=== PATIENT | male | born 1960 | race Caucasian/White ===

== ENCOUNTER 2020-08-23 14:32 | Emergency (ER) | payer OTHER, SELFPAY ==
[2020-08-23 14:40] VITALS: BP 131/77; PULSE 74; RESP 15; TEMP 36.8; O2SAT 98
--- NOTE | 2020-08-23 14:52 | ED.ALLEREA ---
HPI - Allergic Reaction General Chief complaint: Allergic Reaction Stated complaint: lip swelling - takes lisinopril Time Seen by Provider: 08/23/20 14:52 Source: patient Mode of arrival: ambulatory Limitations: no limitations History of Present Illness HPI narrative: Patient is a 60-year-old male who presented for evaluation of intermittent left-sided lip swelling and facial swelling. Patient reports this has been very transient in nature, seems to come and go and currently denies any swelling. He denies any tongue swelling or difficulty breathing. No difficulty swallowing. Patient called his primary care provider who discontinued his lisinopril and started him on amlodipine. He has not had any lisinopril today. He denies any chest pain, hives, history of allergic reactions. No new soaps, lotions or detergents. No rash. No shortness of breath. No diarrhea. Patient states he wanted to be seen emergency department to get checked out. He denies any pain. Related Data Home Medications Medication Instructions Recorded Confirmed amlodipine 08/23/20 08/23/20 simvastatin mg 08/23/20 Allergies Allergy/AdvReac Type Severity Reaction Status Date / Time No Known Allergies Allergy Verified 12/14/14 05:49 Review of Systems Review of Systems: Narrative: CONSTITUTIONAL: Denies fever CARDIOVASCULAR: Denies chest pain RESPIRATORY: Denies cough or dyspnea. GASTROINTESTINAL: Denies abdominal pain SKIN: Denies rash MUSCULOSKELETAL: Denies back pain NEUROLOGIC: Denies headache [facility] Past Medical History Medical History (Updated 08/23/20 @ 15:24 by Scarlett Parham MD) Atrial flutter Hypertension Social History Social History (Updated 08/23/20 @ 15:24 by Scarlett Parham MD) Smoking status: Current some day smoker Tobacco type: cigarettes Alcohol intake: never Substance use: never Gender identity (if verbalized by the patient): Male Exam Narrative: Exam Narrative: GENERAL: Awake, alert, conversant HEAD: Normocephalic, atraumatic. EYES: PERRLA and EOMI. ENT: Nares clear, no rhinorrhea or epistaxis. Mucous membranes moist. No trismus. Uvula is midline. No lip edema or tongue edema. NECK: Supple. CHEST: No respiratory distress, breathing even and non labored HEART: Regular rate, sinus rhythm ABDOMEN:Non distended, non tender EXTREMITIES: Normal range of motion. No edema. SKIN: Warm, dry, no rash. NEURO:No focal deficits. Alert and oriented x3. EOMs intact without nystagmus. No facial droop/asymmetry noted bilaterally. Grimace intact. Intact sensation in face. Hearing intact bilaterally. Shoulder shrug intact. Strength 5/5 bilateral upper extremities. Strength 5/5 bilateral lower extremities. Course Vital Signs Vital signs: Vital Signs Temperature 36.8 C 08/23/20 14:40 Pulse Rate 74 08/23/20 14:40 Respiratory Rate 15 08/23/20 14:40 Blood Pressure 131/77 08/23/20 14:40 Pulse Oximetry 98 08/23/20 14:40 Temperature 36.8 C 08/23/20 14:40 Pulse Rate 74 08/23/20 14:40 Respiratory Rate 15 08/23/20 14:40 Blood Pressure 131/77 08/23/20 14:40 Pulse Oximetry 98 08/23/20 14:40 MDM - Allergic Reaction MDM Narrative Medical decision making narrative: Patient is a 60-year-old male who presented for evaluation of intermittent facial swelling. At the time of assessment there is no swelling appreciated on exam. Patient has no respiratory symptoms or signs of severe anaphylaxis. There is no sign of angioedema of the face, mouth. After speaking with the patient's primary care provider, I did confirm his lisinopril had been discontinued. Patient's blood pressure is appropriate here. No neurological deficits to be suggestive of a different diagnosis. Patient was given Pepcid, Decadron in the ER and was discharged home with PCP follow-up. He was advised to return should his symptoms change or recur. Differential Diagnosis Differential diagnosis: Likely anaphylaxis, allergi
[2020-08-23] MEDS: FAMOTIDINE 20 MG TABLET PO (15:37)
== END 2020-08-23 15:39 | disposition home or self-care (01) ==
PROVIDERS: Emergency Provider Emergency Medicine; PCP Physician Assistant
DX: R22.0 Localized swelling, mass and lump, head (principal); I10 Essential (primary) hypertension; I48.92 Unspecified atrial flutter
CPT/HCPCS: 99283; A9270; J1100

== ENCOUNTER 2021-03-15 14:22 | Emergency (ER) | payer OTHER, SELFPAY ==
[2021-03-15 14:32] VITALS: BP 133/83; PULSE 71; RESP 16; TEMP 36.8; O2SAT 99
--- NOTE | 2021-03-15 14:48 | ED.GENADULT ---
HPI - General Adult General Chief complaint: Allergic Reaction Stated complaint: INSECT BITE Source: patient Mode of arrival: ambulatory Limitations: no limitations History of Present Illness HPI narrative: Patient is a 60-year-old male who presents to the [facility] via POV for evaluation of allergic reaction secondary to hornet sting that occurred approximately 1-1/2 hours ago while working. Patient reports he was working outside when a hornet stung him in the left eyebrow and left upper lip. 50 mg of Benadryl provided no relief. Ice provided some relief. Nothing worsens symptoms. Related Data Home Medications Medication Instructions Recorded Confirmed amlodipine 08/23/20 08/23/20 simvastatin mg 08/23/20 Allergies Allergy/AdvReac Type Severity Reaction Status Date / Time No Known Allergies Allergy Verified 03/15/21 14:28 Review of Systems Review of Systems: Pertinent negatives fever, chills, sweats, change in appetite, malaise, poor p.o. intake, recent weight loss, change in appetite, myalgias, lymphadenopathy, LOC, dizziness, burning sensation, petechiae, blistering, erythema, pruritus, streaking, warmth, lesions, easy bruising, tongue or throat swelling, abdominal pain, nausea, vomiting, numbness, tingling, loss of sensation, cough, wheezing, chest pain, and heart palpitations/murmurs. [facility] Past Medical History Medical History (Updated 03/15/21 @ 14:58 by NANCY Schofield, ) Atrial flutter Hypertension Social History Social History Smoking status: Current some day smoker Tobacco type: cigarettes Alcohol intake: never Substance use: never Gender identity (if verbalized by the patient): Male Comments I have reviewed and agree with the patient's past medical, surgical, social, and family hx as documented by the RN. There is no relevant family history pertinent to the presenting complaint. Exam Narrative: GENERAL: Well-appearing, well-nourished, and in no acute distress. HEAD: Normocephalic, atraumatic. Moderate left-sided facial swelling and erythema appreciated. EYES: PERRLA and EOMI. left upper and lower eyelid with moderate swelling erythema. No evidence of e drainage. ENT: Nares clear, no rhinorrhea or epistaxis.Mucous membranes moist and pink. Uvula is midline without erythema and swelling. No evidence of obstruction, petechial rash, erythema, swelling, tenting, or drooling. Breath odor and voice normal. NECK: Supple. No Lymphadenopathy or nuchal rigidity appreciated. CHEST: Bilateral lung rios are clear to auscultation. No respiratory distress. No evidence of cough or pleuritic cp upon examination. HEART: Regular rate and rhythm. No murmur, gallop, or rub heard. EXTREMITIES: Normal range of motion. No edema. SKIN: Warm, dry. No evidence of cellulitis, abscess, streaking, induration, abrasions/lacerations, petechiae, hematoma, contusion, drainage, or bleeding. NEURO: No focal deficits. Alert and oriented x3. SPECIAL OBSERVATIONS: Smiling. Laughing. Course Vital Signs Vital signs: Vital Signs Temperature 98.2 F 03/15/21 14:32 Pulse Rate 71 03/15/21 14:32 Respiratory Rate 16 03/15/21 14:32 Blood Pressure 133/83 03/15/21 14:32 Pulse Oximetry 99 03/15/21 14:32 Temperature 98.2 F 03/15/21 14:32 Pulse Rate 71 03/15/21 14:32 Respiratory Rate 16 03/15/21 14:32 Blood Pressure 133/83 03/15/21 14:32 Pulse Oximetry 99 03/15/21 14:32 Due to an elevated blood pressure, I had a detailed discussion with the patient and/or guardian regarding the need for follow-up with their primary care provider within the next 3-4 days. Patient verbalized understanding and agreed. Medical Decision Making Differential Diagnosis Differential Diagnosis: Contact/allergic dermatitis, atopic dermatitis, psoriasis, cellulitis, tinea infection, parasite infection, shingles Medical Records Medical records rev
[2021-03-15] MEDS: methylPREDNISolone SOD SUCC 125 MG VIAL IM (14:51)
== END 2021-03-15 15:20 | disposition home or self-care (01) ==
PROVIDERS: Emergency Provider Nurse Practitioner Family
DX: T63.451A Toxic effect of venom of hornets, accidental (unintentional), initial encounter (principal); F17.210 Nicotine dependence, cigarettes, uncomplicated; I10 Essential (primary) hypertension; I48.92 Unspecified atrial flutter
CPT/HCPCS: 96372; 99213; G0463; J2930

== ENCOUNTER 2021-09-09 14:24 | Emergency (ER) | payer OTHER, SELFPAY ==
[2021-09-09] VITALS (18 sets, daily range): BP systolic 118–156; BP diastolic 73–96; PULSE 63–80; RESP 12–25; TEMP 37.2; O2SAT 95–100
--- NOTE | ~2021-09-09 | XR_ITS ---
EXAMINATION: XR chest 2V Exam Date/Time: 09/09/2021 17:05 CDT CLINICAL HISTORY: cough and chills x3days,subjective fever,smoker Comparison: 09/17/2013. RESULT: Lines, tubes, and devices: None. Lungs and pleura: Clear. Cardiomediastinal silhouette: Stable cardiomediastinal silhouette. Other: No acute osseous or upper abdominal finding. IMPRESSION: No acute cardiopulmonary process Reviewed, dictated and finalized at location K.
--- NOTE | 2021-09-09 15:26 | ED.GENADULT ---
HPI - General Adult General Chief complaint: Weakness <ALDA Mrash Last Filed: 09/09/21 19:34> Stated complaint: chill/weakness <ALDA Marsh Last Filed: 09/09/21 19:34> Time Seen by Provider: 09/09/21 15:14 <ALDA Marsh Last Filed: 09/09/21 19:34> Source: patient <ALDA Marsh Last Filed: 09/09/21 19:34> Mode of arrival: ambulatory <ALDA Marsh Last Filed: 09/09/21 19:34> Limitations: no limitations <ALDA Marsh Last Filed: 09/09/21 19:34> History of Present Illness HPI narrative: Patient is a 61-year-old male who presents the ED with report of flu-like symptoms. Patient reports having subjective fever, chills, and intermittent sweats since Saturday. Did not document a thermometer fever. He has been taking DayQuil and NyQuil and aspirin at home. He does not take aspirin daily. He has not taken any Tylenol or ibuprofen. He also reports having myalgias, congestion, and an intermittent productive cough with clear phlegm. He states overall he just feels run down. No chest pain, shortness of breath. No BLE pain or edema. Patient is not flu or COVID vaccinated. No sore throat, nausea, vomiting, abdominal pain, headache. <ALDA Marsh Last Filed: 09/09/21 19:34> Related Data Home medications: Home Medications Medication Instructions Recorded Confirmed amlodipine 08/23/20 08/23/20 simvastatin mg 08/23/20 <ALDA Marsh Last Filed: 09/09/21 19:34> Allergies/adverse reactions: Allergies Allergy/AdvReac Type Severity Reaction Status Date / Time No Known Allergies Allergy Verified 09/09/21 14:57 <ALDA Marsh Last Filed: 09/09/21 19:34> Review of Systems Review of Systems: CONSTITUTIONAL: Reports fever, chills, and sweats. ENT: Reports congestion. Denies sore throat. CARDIOVASCULAR: Denies chest pain, palpitations, or BLE edema. RESPIRATORY: Reports cough. Denies dyspnea. GASTROINTESTINAL: Denies abdominal pain, nausea, vomiting, or diarrhea. MUSCULOSKELETAL: Reports myalgias. NEUROLOGIC: Denies headache. <Sun Peters PA-C - Last Filed: 09/09/21 19:34> All systems reviewed & are unremarkable except as noted in HPI and below <Sun Peters PA-C - Last Filed: 09/09/21 19:34> [facility] Past Medical History Medical History: Medical History (Updated 09/10/21 @ 00:00 by [facility] [place]) Atrial flutter Hyperlipidemia Hypertension <Sun Peters PA-C - Last Filed: 09/09/21 19:34> Surgical History Surgical History: Surgical History (Updated 09/09/21 @ 17:07 by Sun Peters PA-C) No pertinent past surgical history <Sun Peters PA-C - Last Filed: 09/09/21 19:34> Social History Social History: Social History Smoking status: Current some day smoker Tobacco type: cigarettes Alcohol intake: never Substance use: never Gender identity (if verbalized by the patient): Male <Sun Peters PA-C - Last Filed: 09/09/21 19:34> Exam Narrative: GENERAL: Well appearing, well-nourished, non-toxic, in no acute distress. HEAD: Normocephalic, atraumatic. THROAT: Pharynx clear, no exudate. MMs moist. NOSE: Normal, no drainage. NECK: Supple. No adenopathy, no masses. RESPIRATORY: Airway patent, respirations nonlabored. Clear to auscultation bilaterally, no rales, rhonchi, wheezing. Occasional cough on exam. CARDIOVASCULAR: Regular rate and rhythm without murmurs, rubs, or gallops. Radial pulses 2+ and equal bilaterally. ABDOMINAL: Soft, nontender, nondistended, no hepatosplenomegaly. Normoactive BS. MUSCULOSKELETAL: Moves all extremities. Strength/ROM intact without gross deformities or TTP. No edema. SKIN: Warm, dry, normal color. No rashes. NEURO: A&O X3. Speech clear. Cranial nerves II-XII grossly intact. Steady gait. No ataxic movements. PSYCHIATRIC: Appropriate mood and affect. Desire
--- NOTE | 2021-09-09 15:35 | ECG_ITS ---
Measurements Intervals [place] Rate: 63 P: 36 [place]: 141 QRS: 16 QRSD: 94 T: 10 QT: 394 QTc: 405 Interpretive Statements SINUS RHYTHM NORMAL ECG NO PREVIOUS ECG AVAILABLE FOR COMPARISON Electronically Signed On 09-10-2021 7:59:59 CDT by Francisco Javier Puga M.D.
[2021-09-09 15:52] LABS: Basophils Percent Auto 0.2 % (0.2-1.2); Eosinophils Percent Auto 0.4 % (0-4.4); Hematocrit 42.4 % (42.0-52.0); Immature Granulocyte Absolute 0.03 K/mm3 (0.00-0.031); Immature Granulocyte Percent A 0.6 % (0-0.5); Lymphocytes Absolute Auto 1.16 K/mm3 (0.9-3.2); Lymphocytes Percent Auto 24.9 % (18.3-44.2); Mean Corpuscular Hemoglobin 29.2 pg (26-34); Mean Corpuscular Volume 88.5 fl (80-100); Mean Platelet Volume 10.9 fl (7.4-10.4); Monocytes Absolute Auto 0.8 K/mm3 (0.1-0.6); Monocytes Percent Auto 16.6 % (2.6-8.5); Neutrophils Absolute Auto 2.7 K/mm3 (1.3-6.7); Neutrophils Percent Auto 57.3 % (45.5-73.1); Platelet Count Result 178 k/mm3 (150-375); Red Blood Count 4.79 M/mm3 (4.6-6.20); Red Cell Distribution Width 12.8 % (11.5-14.5); White Blood Count 4.7 K/mm3 (4.5-10.0)
[2021-09-09] MEDS: SODIUM CHLORIDE 0.9% IV 1,000 ML 999 ML IV CONT (15:52)
[2021-09-09 15:57] LABS: Alanine Aminotransferase 25 U/L (4-50); Albumin Level 4.2 g/dL (3.5-5.1); Alkaline Phosphatase 55 U/L (38-126); Anion Gap 6 mmol/L (8-16); Aspartate Amino Transferase 37 U/L (17-59); Bilirubin,Total 0.2 mg/dL (0.2-1.3); Blood Urea Nitrogen 18 mg/dL (9-20); Calcium 8.4 mg/dL (8.4-10.2); Carbon Dioxide 25 mmol/L (22-30); Chloride 108 mmol/L (98-107); Estimated CRCL calculation 57 ml/min; Estimated Glomerular Filt Rate > 60; Glucose 93 mg/dL (65-110); Potassium 3.7 mmol/L (3.4-5.0); Sodium 139 mmol/L (137-145)
[2021-09-09 16:08] LABS: Troponin I < 0.012 ng/mL (0.000-0.034)
[2021-09-09 16:37] LABS: Influenza A QL RT-PCR Negative (Negative); Influenza B QL RT-PCR Negative (Negative); SARS-CoV-2 RNA PCR Negative
== END 2021-09-09 17:43 | disposition home or self-care (01) ==
PROVIDERS: Physician Assistant; Emergency Provider Emergency Medicine
DX: J06.9 Acute upper respiratory infection, unspecified (principal); Z20.822 Contact with and (suspected) exposure to COVID-19; I48.92 Unspecified atrial flutter; E78.5 Hyperlipidemia, unspecified; I10 Essential (primary) hypertension; Z28.310 Unvaccinated for COVID-19
CPT/HCPCS: 36415; 71046; 80053; 84484; 85025; 87502; 93005; 96365; 99284; C9803; J0131; J7030; U0003; U0005

== ENCOUNTER 2022-10-12 02:20 | Day surgery (SDC) | payer OTHER, SELFPAY ==
[2022-09-27 15:19] VITALS: BMI 28.5
[2022-10-12 10:53] VITALS: BP 132/76; PULSE 60; RESP 16; TEMP 36.2; O2SAT 100
[2022-10-12] MEDS: LACTATED RINGERS 1,000 ML 150 ML IV CONT (11:04)
--- NOTE | 2022-10-12 11:04 | PM.HPGS ---
History of Present Illness History of Present Illness Consent: Risks, benefits, and alternatives have been discussed and questions answered. Patient agrees to proceed with procedure. Chief complaint: neoplasm screening Narrative: Ron Christie is a 62 year old male Presents for screening colonoscopy. Patient's current weight appetite and bowel movements are normal. Patient denies abdominal pain. He has had no bleeding. Family history noncontributory. Patient presents today for screening colonoscopy Review of Systems Review of Systems: review of systems noncontributory. [facility], [facility] Past Medical History Medical History (Updated 10/12/22 @ 11:05 by Rahul Riddle MD) Atrial flutter Hyperlipidemia Hypertension Surgical History Surgical History (Updated 09/09/21 @ 17:07 by Sun Bustillos PA-C) No pertinent past surgical history Social History Social History Smoking packs per day: 0.5 Smoking cigarettes per day: 10.0 Years smoked: 50 Smoking pack-years: 25.00 Smoking status: Current every day smoker Tobacco type: cigarettes Alcohol intake: current Alcohol use details: rarely Substance use: never Substance use type: does not use Living arrangements: with family Gender identity (if verbalized by the patient): Male Spiritual care concerns: No Meds Home Medications and Allergies Home Medications Medication Instructions Recorded Confirmed Type No Home Medications 10/12/22 10/12/22 History Allergies Allergy/AdvReac Type Severity Reaction Status Date / Time No Known Allergies Allergy Verified 10/12/22 10:52 Vital Signs Vital Signs - 24 hr 10/12/22 10:53 Temperature 97.1 F L Pulse Rate 60 Respiratory Rate 16 Blood Pressure 132/76 Pulse Oximetry 100 Oxygen Delivery Room Air Exam Narrative: Physical exam reveals patient to be alert. Vital signs stable. HEENT exam is unremarkable. Patient is anicteric. Lungs are clear to auscultation and percussion. Heart is without murmur or extra sounds. Abdomen bowel sounds are present soft nontender with no organomegaly. Digital external rectal exam normal. Assessment and Plan Assessment and plan (1) Encounter for screening colonoscopy: Code(s): Z12.11 - Encounter for screening for malignant neoplasm of colon Status: Acute Assessment and Plan: Patient presents today for screening colonoscopy. He appears to be at average risk for colon polyps. Further recommendations will be given after endoscopy.
--- NOTE | 2022-10-12 11:32 | P.PNAN_ITS ---
Anes - Initial Pre Proc Eval Procedure: Operation Date: 10/12/22 11:30 Proposed Procedures p Screening Colonoscopy - Rahul Riddle MD Date/Time: 10/12/22 11:32 Surgeon: aRhul Riddle MD Pre Op Diagnosis: neoplasm screening Patient Data Age: 62 Gender: M Height: 1.73 m Weight: 84.6 kg Last Vital Signs Temp 97.1 F L 10/12/22 10:53 Pulse 60 10/12/22 10:53 Resp 16 10/12/22 10:53 BP 132/76 10/12/22 10:53 Pulse Ox 100 10/12/22 10:53 O2 Del Method Room Air 10/12/22 10:53 Allergies Allergy/AdvReac Type Severity Reaction Status Date / Time No Known Allergies Allergy Verified 10/12/22 10:52 Home Medications Medication Instructions Recorded Confirmed Type No Home Medications 10/12/22 10/12/22 History Patient hx anesthesia problems: none Family hx anesthesia problems: none Results Review: All pre-operative results and documents have been reviewed as part of the pre- operative evaluation. [facility] Past Medical History Medical History (Updated 10/12/22 @ 11:05 by Rahul Riddle MD) Atrial flutter Hyperlipidemia Hypertension Surgical History Surgical History (Updated 09/09/21 @ 17:07 by Sun Bustillos PA-C) No pertinent past surgical history Social History Social History Smoking packs per day: 0.5 Smoking cigarettes per day: 10.0 Years smoked: 50 Smoking pack-years: 25.00 Smoking status: Current every day smoker Tobacco type: cigarettes Alcohol intake: current Alcohol use details: rarely Substance use: never Substance use type: does not use Living arrangements: with family Gender identity (if verbalized by the patient): Male Spiritual care concerns: No Anes - Eval Final PreProcedure Day of Procedure 10/12/22 11:32 Patient weight: normal Heart: regular rate and rhythm Lungs: clear to auscultation Airway: Mallampati scale Neurological: alert and oriented Last oral intake: >/= 8 hours ASA classification: III Emergent: no Anesthetic plan: proceed Anesthesia type and monitoring: general GIVS and standard monitoring Results Review: All pre-operative results and documents have been reviewed as part of the pre- operative evaluation. Informed Consent: The patient's anesthetic plan and its attendant risks and benefits were discussed with the patient/family/POA. Questions were solicited and answers provided to the satisfaction of the patient/family/POA.
[2022-10-12 12:29] VITALS: BP 117/78; PULSE 63; RESP 19; O2SAT 100
[2022-10-12 12:39] VITALS: BP 121/81; PULSE 60; RESP 18; O2SAT 100
== END 2022-10-12 12:53 | disposition home or self-care (01) ==
PROVIDERS: PCP Physician Assistant; Visit Provider Internal Medicine Gastroenterology
PROC: 0DJD8ZZ Inspection of Lower Intestinal Tract, Via Natural or Artificial Opening Endoscopic (ICD-10-PCS; CPT 45378; principal; 2022-10-12 11:30)
DX: Z12.11 Encounter for screening for malignant neoplasm of colon (principal); D12.2 Benign neoplasm of ascending colon; D12.5 Benign neoplasm of sigmoid colon; K64.8 Other hemorrhoids; E78.5 Hyperlipidemia, unspecified; I10 Essential (primary) hypertension; F17.210 Nicotine dependence, cigarettes, uncomplicated
CPT/HCPCS: 45385; 88305; J2001; J2704; J7120

== ENCOUNTER 2023-10-28 12:02 | Emergency (ER) | payer OTHER, SELFPAY ==
--- NOTE | 2023-10-28 12:14 | ED.EYEPROB ---
HPI - Eye Problem General Chief complaint: Eye Problems Stated complaint: eye issue Time Seen by Provider: 10/28/23 12:30 Source: patient and RN notes reviewed Mode of arrival: ambulatory Limitations: no limitations History of Present Illness HPI Narrative: 63-year-old male presents with concern for foreign body in his left eye. Reports prior to arrival at work he got some dust in his eye feels like there is something still in there despite red. He denies vision changes. He denies drainage. chief complaint: foreign body Related Data Allergies Allergy/AdvReac Type Severity Reaction Status Date / Time No Known Allergies Allergy Verified 10/28/23 12:28 Review of Systems Review of Systems: CONSTITUTIONAL: Denies malaise, chills, sweats, or fever. EYES: Denies visual changes. Reports left eye irritation, sensation of foreign body ENT: Denies rhinorrhea, congestion, sinus pain, otalgia or sore throat. SKIN: Denies rash or itching. NEUROLOGIC: Denies numbness, weakness, or headache. PSYCHIATRIC: Denies anxiety or depression. All systems reviewed & are unremarkable except as noted in HPI and below PMFSH Past Medical History Medical History (Updated 10/28/23 @ 12:43 by Esther Casillas NP) Atrial flutter Hyperlipidemia Hypertension Surgical History Surgical History (Updated 09/09/21 @ 17:07 by Sun Bustillos PA-C) No pertinent past surgical history Social History Social History Smoking packs per day: 0.5 Smoking cigarettes per day: 10.0 Years smoked: 50 Smoking pack-years: 25.00 Smoking status: Current every day smoker Tobacco type: cigarettes Alcohol intake: current Alcohol use details: rarely Substance use: never Substance use type: does not use Living arrangements: with family Gender identity (if verbalized by the patient): Male Spiritual care concerns: No Comments At time of signature, agree with nursing past medical, surgical, social and family history. There is no relevant family history pertinent to the presenting complaint Exam Narrative: GENERAL: Well-appearing, well-nourished, and in no acute distress. HEAD: Normocephalic, atraumatic. EYES: PERRLA and EOMI. No nystagmus. Foreign body visible in the left eye without scleral injection. Upper and lower eyelid unremarkable, no periorbital edema noted ENT: Nares clear, turbinates pink, no rhinorrhea or epistaxis. Mucous membranes moist. TM pearly mueller with sharp light reflex bilaterally; no tragal tenderness. NECK: Supple. CHEST: No respiratory distress. Speaks in full sentences. HEART: Regular rate and rhythm. SKIN: Warm, dry, no visible rash. NEURO: Alert and oriented x3. PSYCH: Normal mood and affect Course Course Emergency Course: Patient is aware of diagnosis, understands and agrees to treatment plan. Anticipatory guidance given. Patient agrees to follow-up as directed and is aware of reasons to seek care at the emergency department. Portions of this record may have been created with voice recognition software Level of Care: Express Care Visit Vital Signs Vital signs: Reviewed. Procedures FB Removal Eye Foreign Body #1: Foreign Body Removal Date: 10/28/23 Foreign Body Removal Time: 12:35 Time Out performed: Yes Location: eye (L) Topical anesthetic used: tetracaine Foreign body: wood Evidence of corneal penetration: No Technique: cotton tip swab Procedure performed under: direct visualization with magnification Post-procedure medication: ophthalmic antibiotic Patient tolerated procedure: well Foreign Body Removal Narrative: Foreign body removed, a corneal abrasion noted where foreign body was located Other Procedure Procedure 1: Other Procedure: Tetracaine 1 gtt instilled in left eye, fluorescein stain applied. Corneal abrasion noted upon [place]
[2023-10-28 12:22] VITALS: BP 147/86; PULSE 72; RESP 18; TEMP 37.2; O2SAT 97
[2023-10-28] MEDS: TETRACAINE HCL 0.5% OPHTH SOLN 4 ML BTL LEFT EYE (12:30)
[2023-10-28] MEDS: DACRIOSE EYE IRRIGATION 118 ML BOTTLE LEFT EYE (12:30)
[2023-10-28] MEDS: FLUORESCEIN SOD 1 MG/STRIP LEFT EYE (12:30)
== END 2023-10-28 12:47 | disposition home or self-care (01) ==
PROVIDERS: Emergency Provider Nurse Practitioner; PCP Physician Assistant
DX: T15.02XA Foreign body in cornea, left eye, initial encounter (principal); W44.9XXA Unspecified foreign body entering into or through a natural orifice, initial encounter; Y99.0 Civilian activity done for income or pay; F17.210 Nicotine dependence, cigarettes, uncomplicated; I48.92 Unspecified atrial flutter; E78.5 Hyperlipidemia, unspecified; I10 Essential (primary) hypertension
CPT/HCPCS: 65220; 99213; A9270; G0463

== ENCOUNTER 2025-04-12 08:26 | Emergency (ER) | payer OTHER, SELFPAY ==
[2025-04-12 08:38] VITALS: BP 172/90; PULSE 78; RESP 16; TEMP 36.9; O2SAT 100
--- NOTE | 2025-04-12 08:54 | ED_ITS ---
HPI - General Adult General Chief complaint: Upper Respiratory Infection Stated complaint: sore throat/body aches Time Seen by Provider: 04/12/25 08:56 Source: patient, RN notes reviewed and old records reviewed Mode of arrival: ambulatory Limitations: no limitations History of Present Illness HPI narrative: 64-year-old male presents to the [facility] with complaints of sore throat and body aches. patient reports body aches for approximately 2 days. Sore throat started at noon yesterday. States he did use at throat stray and took 2 ibuprofen yesterday which has helped with the discomfort, woke up this morning and the pain returned. Denied any other symptoms. Related Data Home Medications ?Medication ?Instructions ?Recorded ?Confirmed ?Last Taken ?Type No Home Medications 04/12/25 04/12/25 U nknown History Allergies Allergy/AdvReac Type Severity Reaction Status Date / Time No Known Allergies Allergy Verified 04/12/25 09:05 Review of Systems Review of Systems: All systems reviewed & are unremarkable except as noted in HPI and below Constitutional: Constitutional: Reports as per HPI and Reports body ache(s) ENT: Reports as per HPI and Reports sore throat Cardiovascular: Cardiovascular: Reports no additional cardiovascular complaints, Denies chest pain and Denies dyspnea Respiratory: Respiratory: Reports no additional respiratory complaints, Denies chest congestion, Denies cough and Denies dyspnea Musculoskeletal: Musculoskeletal: Reports no additional musculoskeletal complaints Integumentary/Breasts: Skin/Breast: Reports system reviewed and no additional complaints, except as docu PMFSH Past Medical History Medical History Hyperlipidemia Atrial flutter Hypertension Surgical History Surgical History No pertinent past surgical history Social History Social History Smoking packs per day: 0.5 Smoking cigarettes per day: 10.0 Years smoked: 50 Smoking pack-years: 25.00 Smoking status: Current every day smoker Tobacco type: cigarettes Alcohol intake: current Alcohol use details: rarely Substance use: never Substance use type: does not use Living arrangements: with family Gender identity (if verbalized by the patient): Male Spiritual care concerns: No Comments At the time of my signature, I reviewed and agree with the nursing past medical, surgical, social, and family history. There is no relevant family history pertinent to the patient complaint. Exam Const: General: cooperative, healthy appearing, comfortable, no acute distress, well developed, alert and well nourished Nutritional Appearance: well nourished Orientation/consciousness: patient oriented x3 Limitations: no limitations HENMT: Head: normal to inspection Ears: hearing grossly normal bilaterally, external ears normal, TM's normal bilaterally, EAC's normal, mastoids normal and no periauricular adenopathy Face/Nose/Sinus: Normal external nose present Mouth: Yes Normal oral and palatal mucosa present, Yes lip normal, Yes tongue normal and Yes moist mucous membranes Throat: posterior oropharynx normal, uvula midline and no uvular edema Eyes: General: appearance normal, both eyes and all related structures Alignment and Position: alignment normal Neck: Neck: normal visual inspection, full ROM, no lymphadenopathy and no meningeal signs Chest: Chest palpation & inspection: normal inspection of the chest Resp: Effort & Inspection: normal respiratory effort and able to speak in complete sentences Auscultation: clear to auscultation bilaterally, no crackles, no rales, no rhonchi and no wheezes Cardio: Rate: regular rate Skin: General skin exam: normal color and no rashes or lesions noted Neuro: General: patient oriented x3, gait normal, moves all extremities and no meningeal signs Cognition (Neuro): normal cognition Speech: normal speech Gait exam (Neuro): Normal gait present Extrem: General: normal to inspection, full ROM, capillary refill normal and normal gait Psych: Appearance: grossly normal and well kempt Mental Status: mental status grossly normal Speech and movement: Normal speech and movement present and Clear speech present Affect: normal affect Attitude: cooperative Course Course Level of Care: Express Care Visit Vital Signs Vital signs: Vital Signs Temperature 98.5 F 04/12/25 08:38 Pulse Rate 78 04/12/25 08:38 Respiratory Rate 16 04/12/25 08:38 Blood Pressure 172/90 H 04/12/25 08:38 Pulse Oximetry 100 04/12/25 08:38 Oxygen Delivery Room Air 04/12/25 08:38 Temperature 98.5 F 04/12/25 08:38 Pulse Rate 78 04/12/25 08:38 Respiratory Rate 16 04/12/25 08:38 Blood Pressure 172/90 H 04/12/25 08:38 Pulse Oximetry 100 04/12/25 08:38 Oxygen Delivery Room Air 04/12/25 08:38 Reviewed Medical Decision Making MDM Narrative Medical decision making narrative: Patient sitting comfortably in exam room. Nontoxic, vitals stable Except blood pressure elevated. Encourage patient to follow-up with primary care provider for further evaluation of blood pressure.. Patient in no acute distress Patient presents for Sore throat since yesterday. Flu, COVID and strep were all negative in clinic. Patient appropriate for outpatient treatment with close follow-up Discharge instructions reviewed with patient, as well as provided in writing per nursing staff. The instructions also include specific and strict return/GO TO THE ER as well as f/u information. All questions have been answered, and the patient deny any further questions with discharge and discharge plan. Some parts of this dictation were generated by voice recognition software and may contain typographical and/or grammatical inaccuracies. Differential Diagnosis Differential Diagnosis: flu, COVID, strep, URI Medical Records Medical records reviewed: Yes I reviewed the external patient's medical records. Vital Signs Vital Signs: Vital Signs Temperature 98.5 F 04/12/25 08:38 Pulse Rate 78 04/12/25 08:38 Respiratory Rate 16 04/12/25 08:38 Blood Pressure 172/90 H 04/12/25 08:38 Pulse Oximetry 100 04/12/25 08:38 Oxygen Delivery Room Air 04/12/25 08:38 Temperature 98.5 F 04/12/25 08:38 Pulse Rate 78 04/12/25 08:38 Respiratory Rate 16 04/12/25 08:38 Blood Pressure 172/90 H 04/12/25 08:38 Pulse Oximetry 100 04/12/25 08:38 Oxygen Delivery Room Air 04/12/25 08:38 Reviewed Lab Data Lab results reviewed: Yes I reviewed the patient's lab results. Labs: Lab Results 04/12/25 Range/Units 08:56 POC Influenza A Ag Negative (Negative) POC Influenza B Ag Negative (Negative) POC SARS CoV-2 Ag Negative (Negative) POC Grp A Strep Screen Negative (Negative) Reviewed Critical Care Time Critical Care Time Critical Care Time: No Discharge Plan Discharge Clinical Impression: Viral infection, Elevated blood pressure reading Patient Disposition: Home Condition: Stable Instructions: Viral Syndrome (ED) Additional Instructions: today your blood pressure was 172/90. We recommend you follow-up with your primary care provider to have this further evaluated. Untreated or undertreated blood pressure could lead to more serious health issues. If you are having a hard time finding a physician please call our [facility] group liaison at [phone]. Your rapid strep swab was negative today at [facility]. A throat culture will be sent to the laboratory for further testing. If the test is positive, you will receive a phone call within 48 hours and an appropriate antibiotic will be initiated at that time. Your rapid COVID test were negative Your rapid flu test was negative Your symptoms are likely due to a viral illness, which is not treated with antibiotics. Typically viral infections last 7-10 days, can linger for couple of weeks. It is very important to treat your symptoms. Drink plenty of water, Gatorade, Pedialyte, ice pops or Jell-O. -Alternate Tylenol 500mg and Motrin 600mg for body aches. You can alternate every 4 hours -Antihistamine medication such as Zyrtec/Claritin/Marce during the day can help improve symptoms. -doing daily nasal irrigations can help relieve pressure your sinuses. Things like a Neti pot -Use Flonase twice a day for 5 days then daily to help reduce the inflammation and dry up your sinuses. -You can also use Mucinex. Be sure to drink plenty of water with this medication at least 8 ounces with every dose and it is important to drink 8 to 10 glasses of water per day. Water is a natural decongestant -Eat and drink things that are easy to swallow, like tea or soup, or popsicles. -Oral rinses such as: Salt water gargles and/or may use topical anesthetic (eg. Chloraseptic spray) or lozenges to relieve dryness or throat pain). -Frequent hand washing or hand computator is one of the best ways to prevent spread of infection. -Using a vaporizer or humidifier at night will also help thin secretions and help with coughing up phlegm. -Follow up with primary care provider in 7-10 days if condition is not improving - For new or worsening symptoms go directly to the nearest ER Patient Language: Vietnamese Prescriptions: No Action No Home Medications Follow-up/Referrals: UNKNOWN,DOCTOR [Primary Care Provider] Stand Alone Forms: Work/School Release IP Time of Disposition: 09:06
[2025-04-12 11:52] LABS: EDCOVIDSCREEN Negative (Negative); EDINFLUASCREEN Negative (Negative); EDINFLUBSCREEN Negative (Negative); EDSTREPNEGPOS1 Negative (Negative)
== END 2025-04-12 09:12 | disposition home or self-care (01) ==
PROVIDERS: Emergency Provider Nurse Practitioner
DX: B34.9 Viral infection, unspecified (principal); I10 Essential (primary) hypertension; Z20.822 Contact with and (suspected) exposure to COVID-19; I48.92 Unspecified atrial flutter; E78.5 Hyperlipidemia, unspecified; F17.210 Nicotine dependence, cigarettes, uncomplicated
CPT/HCPCS: 87081; 87426; 87804; 87880; 99213; G0463

== ENCOUNTER 2025-04-20 16:10 | Emergency (ER) | payer OTHER, SELFPAY ==
--- NOTE | 2025-04-20 16:11 | ED.URI ---
HPI - URI/Sore Throat General Chief Complaint: Upper Respiratory Infection Stated Complaint: Sinus Source: patient, RN notes reviewed and old records reviewed Mode of arrival: ambulatory Limitations: no limitations History of Present Illness HPI Narrative: 64-year-old male presents to the [facility] with continued, worsening symptoms. per medical record was seen on April 12 for a sore throat and body aches. Patient reports that since he has been seen some sinus pain, pressure, postnasal drainage. Has taken Mucinex. Patient states sore throat is better, body aches are better Treatments prior to arrival: cold medicine Related Data Allergies Allergy/AdvReac Type Severity Reaction Status Date / Time No Known Allergies Allergy Verified 04/20/25 16:11 Review of Systems Review of Systems: All systems reviewed & are unremarkable except as noted in HPI and below Constitutional: Constitutional: Reports no additional constitutional complaints ENT: Reports as per HPI, Reports nasal discharge, Reports sinus pain and Reports sinus pressure Cardiovascular: Cardiovascular: Reports no additional cardiovascular complaints, Denies chest pain and Denies dyspnea Respiratory: Respiratory: Reports no additional respiratory complaints, Denies chest congestion, Denies cough and Denies dyspnea Musculoskeletal: Musculoskeletal: Reports no additional musculoskeletal complaints Integumentary/Breasts: Skin/Breast: Reports system reviewed and no additional complaints, except as docu PMFSH Past Medical History Medical History Hyperlipidemia Atrial flutter Hypertension Surgical History Surgical History No pertinent past surgical history Social History Social History Smoking packs per day: 0.5 Smoking cigarettes per day: 10.0 Years smoked: 50 Smoking pack-years: 25.00 Smoking status: Current every day smoker Tobacco type: cigarettes Alcohol intake: current Alcohol use details: rarely Substance use: never Substance use type: does not use Living arrangements: with family Gender identity (if verbalized by the patient): Male Spiritual care concerns: No Comments At the time of my signature, I reviewed and agree with the nursing past medical, surgical, social, and family history. There is no relevant family history pertinent to the patient complaint. Exam Const: General: cooperative, healthy appearing, comfortable, no acute distress, well developed, alert and well nourished Nutritional Appearance: well nourished Orientation/consciousness: patient oriented x3 Limitations: no limitations HENMT: Head: normal to inspection Ears: hearing grossly normal bilaterally, external ears normal, TM's normal bilaterally, EAC's normal, mastoids normal and no periauricular adenopathy Face and sinus: normal facial exam, face symmetric and sinus tenderness frontal and maxillary Mouth: Yes Normal oral and palatal mucosa present, Yes lip normal, Yes tongue normal and Yes moist mucous membranes Throat: posterior oropharynx normal, uvula midline and no uvular edema Eyes: General: appearance normal, both eyes and all related structures Alignment and Position: alignment normal Neck: Neck: normal visual inspection, full ROM, no lymphadenopathy and no meningeal signs Chest: Chest palpation & inspection: normal inspection of the chest Resp: Effort & Inspection: normal respiratory effort and able to speak in complete sentences Auscultation: clear to auscultation bilaterally, no crackles, no rales, no rhonchi and no wheezes Cardio: Rate: regular rate Skin: General skin exam: normal color and no rashes or lesions noted Neuro: General: patient oriented x3, gait normal, moves all extremities and no meningeal signs Cognition (Neuro): normal cognition Speech: normal speech Gait exam (Neuro): Normal gait present Extrem: General: normal to inspection, full ROM, capillary refill normal and normal gait Psych: Appearance: grossly normal and well kempt Mental Status: mental status grossly normal Speech and movement: Normal speech and movement present and Clear speech present Affect: normal affect Attitude: cooperative Course Course Level of Care: Express Care Visit Vital Signs Vital signs: Vital Signs Temperature 97.4 F L 04/20/25 16:19 Pulse Rate 74 04/20/25 16:19 Respiratory Rate 20 04/20/25 16:19 Blood Pressure 163/94 H 04/20/25 16:19 Pulse Oximetry 99 04/20/25 16:19 Oxygen Delivery Room Air 04/20/25 16:19 Temperature 97.4 F L 04/20/25 16:19 Pulse Rate 74 04/20/25 16:19 Respiratory Rate 20 04/20/25 16:19 Blood Pressure 163/94 H 04/20/25 16:19 Pulse Oximetry 99 04/20/25 16:19 Oxygen Delivery Room Air 12/02/25 16:19 reviewed MDM MDM Narrative Medical decision making narrative: patient sitting in exam room. Patient is nontoxic, vitals stable. Patient presents with URI symptoms that have got worse after original evaluation. Will prescribe antibiotic due to worsening symptoms symptoms times 10 days. Patient's blood pressure elevated once again, reminded patient that he really needs to follow-up with primary care provider for further evaluation and better blood pressure control patient is appropriate for outpatient treatment with close follow-up, continue OTC medications as well as prescribed medication Discharge instructions reviewed with patient, as well as provided in writing per nursing staff. The instructions also include specific and strict return/GO TO THE ER as well as f/u information. All questions have been answered, and the patient deny any further questions with discharge and discharge plan. Some parts of this dictation were generated by voice recognition software and may contain typographical and/or grammatical inaccuracies. Differential Diagnosis Differential Diagnosis: Differential diagnostic considerations for upper respiratory infection include upper respiratory infection, otitis media, sinusitis, viral infection, bronchitis, influenza, pharyngitis, strep, uvulitis.? Medical Records I have reviewed the following patient records and this information was taken into consideration when formulating the assessment and plan.: previous ER visits, previous hospitalizations and previous clinic visits Critical Care Time Critical Care Time Critical Care Time: No Discharge Plan Discharge Clinical Impression: Sinusitis Qualifiers: Sinusitis location: pansinusitis Patient Disposition: Home Condition: Stable Instructions: Antibiotic Form, Sinusitis (ED) Additional Instructions: If you are having a hard time finding a physician please call our [facility] group liaison at [phone]. Today your blood pressure was 163/94. Please follow-up with your primary care provider within the next 2 weeks to have this further evaluate untreated or undertreated blood pressure can lead to more serious health issues it is extremely important you get this evaluated by your primary doctor It is very important to treat your symptoms. Drink plenty of water, Gatorade, Pedialyte, ice pops or Jell-O. -Alternate Tylenol and Motrin per package directions for fever or pain. You can alternate every 4 hours -Antihistamine medication such as Zyrtec/Claritin during the day can help improve symptoms. -doing daily nasal irrigations can help relieve pressure your sinuses. Things like a Neti pot -Use Flonase twice a day for 5 days then daily to help reduce the inflammation and dry up your sinuses. -You can also use Mucinex. Be sure to drink plenty of water with this medication at least 8 ounces with every dose and it is important to drink 8 to 10 glasses of water per day. Water is a natural decongestant -Eat and drink things that are easy to swallow, like tea or soup, or popsicles. -Oral rinses such as: Salt water gargles and/or may use topical anesthetic (eg. Chloraseptic spray) or lozenges to relieve dryness or throat pain). -Frequent hand washing or hand voyage management system operator is one of the best ways to prevent spread of infection. -Using a vaporizer or humidifier at night will also help thin secretions and help with coughing up phlegm. -Follow up with primary care provider in 7-10 days if condition is not improving - For new or worsening symptoms go directly to the nearest ER Patient Language: Yemeni Prescriptions: New doxycycline monohydrate 100 mg tablet 100 mg PO BID Qty: 14 0RF Follow-up/Referrals: UNKNOWN,DOCTOR [Non-Staff] Time of Disposition: 16:27
[2025-04-20 16:19] VITALS: BP 163/94; PULSE 74; RESP 20; TEMP 36.3; O2SAT 99
== END 2025-04-20 16:35 | disposition home or self-care (01) ==
PROVIDERS: Emergency Provider Nurse Practitioner
DX: J32.4 Chronic pansinusitis (principal); F17.210 Nicotine dependence, cigarettes, uncomplicated; I10 Essential (primary) hypertension; I48.92 Unspecified atrial flutter; E78.5 Hyperlipidemia, unspecified
CPT/HCPCS: 99213; G0463